=== PATIENT | female | born 1975 | race Two or more races ===

== ENCOUNTER 2018-09-18 08:48 | Observation (INO) | payer OTHER ==
[~2018-09-18] VITALS: Ht 160 cm; Wt 87.1 kg
[~2018-09-18 08:48] MED LIST: DEXAMETHASONE SOD PHOS 20 MG/5 ML VIAL. ONE; HYDROmorphone 2 MG/ML VIAL IV PRN; IV RINGERS,LACTATED 1000ML 1,000 ML IV SCH; LIDOCAINE 1% PF 2 ML VIAL. ID PRN; LIDOCAINE 2% PF 5 ML VIAL. ONE; MIDAZOLAM HCL/PF 2 MG/2 ML VIAL. ONE; MORPHINE SULFATE 2 MG/ML VIAL. IV PRN; ONDANSETRON PF 4 MG/2 ML VIAL. IV PRN; ONDANSETRON PF 4 MG/2 ML VIAL. ONE; PROCHLORPERAZINE 10 MG/2 ML VIAL. IV PRN; PROPOFOL 20 ML IV ONE; fentaNYL PF VIAL 100 MCG/2 ML VIAL IV PRN; fentaNYL PF VIAL 100 MCG/2 ML VIAL ONE
[2018-09-18 09:12] LABS: U PREG PATIENT NEGATIVE (NEG)
[2018-09-18 09:40] LABS: BASO # 0.1 x10^3/uL (0.0-0.2); BASO % 1 % (0-3); EOS # 0.1 x10^3/uL (0.0-0.7); EOS % 1 % (0-3); HEMATOCRIT 37.6 % (36.0-47.0); HEMOGLOBIN 12.5 g/dL (12.0-15.5); LYMPH # 2.4 x10^3/uL (1.0-4.8); LYMPH % 33 % (24-48); MEAN CORPUSCULAR HEMOGLOBIN 31 pg (25-35); MEAN CORPUSCULAR HGB CONC 33 g/dL (31-37); MEAN CORPUSCULAR VOLUME 93 fL (79-100); MONO # 0.5 x10^3/uL (0.0-1.1); MONO % 7 % (0-9); NEUT # 4.1 x10^3uL (1.8-7.7); NEUT % 58 % (31-73); PLATELET COUNT 431 x10^3/uL (140-400); RED BLOOD COUNT 4.04 x10^6/uL (3.50-5.40); RED CELL DISTRIBUTION WIDTH 14.6 % (11.5-14.5); WHITE BLOOD COUNT 7.1 x10^3/uL (4.0-11.0)
[2018-09-18] MEDS ORDERED: SILVER NITRATE STICK TP ONE (10:38)
[2018-09-18] MEDS ORDERED: LIDOCAINE 1%/EPI 1:100,000 20 ML VIAL. ONE (10:54)
[2018-09-18] MEDS ORDERED: KETOROLAC 30 MG/ML INJ FOR OR. INJ ONE (11:26)
[2018-09-18] MEDS ORDERED: SEVOFLURANE 31 TO 60 MINUTES. IH ONE (11:26)
--- NOTE | 2018-09-18 11:47 | PDOC ---
BRIEF OPERATIVE NOTE Date: Sep 18, 2018 Pre-Op Diagnosis 1. Dyspareunia 2. Labial skin tag Post-Op Diagnosis Same Procedure Performed Left Simple Vulvectomy Surgeon Dr. Moy Anesthesia Type: General Blood Loss 20 ml Specimens Obtained none Findings Left labial skin tag Complications none Operative Note see dictation SUSANNE MOY Jr, MD Sep 18, 2018 11:47
[2018-09-18] MEDS ORDERED: diphenhydrAMINE HCL 25 MG CAPSULE PO PRN (12:00)
[2018-09-18] MEDS ORDERED: ONDANSETRON PF 4 MG/2 ML VIAL. IV PRN (12:00)
[2018-09-18] MEDS ORDERED: CALCIUM CARBONATE 500 MG TAB.CHEW PO PRN (12:00)
[2018-09-18] MEDS ORDERED: ZOLPIDEM 5 MG TABLET. PO PRN (12:00)
[2018-09-18] MEDS ORDERED: diphenhydrAMINE 50 MG/ML VIAL IV PRN (12:00)
[2018-09-18] MEDS ORDERED: DEXTROSE 50% 25 GM / 50ML DISP.SYRIN. IV PRN (12:00)
[2018-09-18] MEDS ORDERED: KETOROLAC 30 MG/ML VIAL. IV PRN (12:00)
[2018-09-18] MEDS ORDERED: PROCHLORPERAZINE 10 MG/2 ML VIAL. IV PRN (12:00)
[2018-09-18] MEDS ORDERED: SIMETHICONE 80 MG TAB.CHEW PO PRN (12:00)
[2018-09-18] MEDS ORDERED: 0.9 % SODIUM CHLORIDE 10 ML DISP.SYRIN. IV PRN (12:00)
--- NOTE | 2018-09-18 12:12 | OP ---
DATE OF SURGERY: 09/18/2018 PREOPERATIVE DIAGNOSES: 1. Dyspareunia. 2. Labial skin tag. POSTOPERATIVE DIAGNOSES: 1. Dyspareunia. 2. Labial skin tag. PROCEDURE: Left simple vulvectomy. SURGEON: Sidney Moy MD. ANESTHESIA: GETA. ESTIMATED BLOOD LOSS: 20 mL. COMPLICATIONS: None. FINDINGS: Left labial skin tag. SUMMARY: A 43-year-old female who was complaining of dyspareunia and was found to have a left labial skin tag. The patient was counseled on risks, benefits and expectations of simple vulvectomy for removal of the left labial skin tag. She voiced clear understanding to proceed. DESCRIPTION OF PROCEDURE: The patient was taken to surgery suite and placed in dorsal lithotomy position. She was prepped with Betadine solution and draped in a sterile fashion. After adequate anesthesia, the lesion was identified and demarcated with a marking pen, which an elliptical incision was utilized to remove the lower left lobe of the labia using 1% lidocaine with epinephrine and scalpel. The remaining tissue of the bulbocavernosus muscles were reapproximated using 0 Vicryl suture in an interrupted fashion. Two interrupted sutures were utilized to reapproximate the perineal body. The skin was reapproximated using 2-0 Vicryl suture in a subcuticular manner. Moist vaginal packing was then placed. The patient tolerated the procedure well and was taken to recovery room in stable condition. Sponge and needle count correct x 3. SIDNEY MOY MD DR: ABDIRIZAK/cj JOB#: [id number] / [id number]
[2018-09-18 13:22] VITALS: BP 113/62
[2018-09-18 14:00] VITALS: BP 110/68
[2018-09-18 14:38] VITALS: BP 102/66
[2018-09-18] MEDS: GABAPENTIN 300 MG CAPSULE. PO SCH ×2 (14:50→21:08)
[2018-09-18] MEDS: oxyCODONE/APAP 5/325 1 TAB TABLET PO PRN ×2 (16:09→21:07)
[2018-09-18] MEDS ORDERED: OPIUM/BELLADONNA 30/16.2MG SUPP.RECT. PR PRN (17:15)
[2018-09-18 23:00] VITALS: BP 107/57
[2018-09-19] MEDS: oxyCODONE/APAP 5/325 1 TAB TABLET PO PRN ×2 (04:36→10:20)
[2018-09-19 05:47] VITALS: BP 102/59
[2018-09-19 05:58] LABS: BASO % 0 % (0-3); EOS % 0 % (0-3); HEMATOCRIT 37.6 % (36.0-47.0); HEMOGLOBIN 12.5 g/dL (12.0-15.5); LYMPH # 1.5 x10^3/uL (1.0-4.8); LYMPH % 14 % (24-48); MEAN CORPUSCULAR HEMOGLOBIN 31 pg (25-35); MEAN CORPUSCULAR HGB CONC 33 g/dL (31-37); MEAN CORPUSCULAR VOLUME 94 fL (79-100); MONO # 0.4 x10^3/uL (0.0-1.1); MONO % 4 % (0-9); NEUT # 9.1 x10^3uL (1.8-7.7); NEUT % 82 % (31-73); PLATELET COUNT 440 x10^3/uL (140-400); RED BLOOD COUNT 4.02 x10^6/uL (3.50-5.40); RED CELL DISTRIBUTION WIDTH 14.4 % (11.5-14.5); WHITE BLOOD COUNT 11.1 x10^3/uL (4.0-11.0)
[2018-09-19] MEDS: GABAPENTIN 300 MG CAPSULE. PO SCH (06:01)
--- NOTE | 2018-09-19 08:30 | PDOC ---
SURGICAL PROGRESS NOTE Subjective Pt. feeling well. Pain controlled. No complaints. Vital Signs Vital Signs Date Time Temp Pulse Resp B/P (MAP) Pulse Ox O2 Delivery O2 Flow Rate FiO2 09/19/18 05:47 98.4 57 16 102/59 (73) 98 Room Air 98.4 09/18/18 16:09 8.0 I&O Intake and Output 09/19/18 07:00 Intake Total 80 ml Output Total 570 ml Balance -490 ml Intake Oral 80 ml Output Urine Total 550 ml Estimated Blood Loss 20 ml PATIENT HAS A MCKAY: No General: Alert, Oriented X3, Cooperative HEENT: Atraumatic Lungs: Clear to auscultation Heart: Regular rate Abdomen: Normal bowel sounds, Soft, No tenderness, Other (Pelvic: vaginal packing removed. Incision site: clean and intact.) Extremities: No edema Psych/Mental Status: Mental status NL Labs Laboratory Tests Test 09/18/18 09:00 09/18/18 09:20 09/19/18 05:30 Urine Test Negative (NEG) White Blood Count 7.1 x10^3/uL (4.0-11.0) 11.1 x10^3/uL (4.0-11.0) Red Blood Count 4.04 x10^6/uL (3.50-5.40) 4.02 x10^6/uL (3.50-5.40) Hemoglobin 12.5 g/dL (12.0-15.5) 12.5 g/dL (12.0-15.5) Hematocrit 37.6 % (36.0-47.0) 37.6 % (36.0-47.0) Mean Corpuscular Volume 93 fL (79-100) 94 fL (79-100) Mean Corpuscular Hemoglobin 31 pg (25-35) 31 pg (25-35) Mean Corpuscular Hemoglobin Concent 33 g/dL (31-37) 33 g/dL (31-37) Red Cell Distribution Width 14.6 % (11.5-14.5) 14.4 % (11.5-14.5) Platelet Count 431 x10^3/uL (140-400) 440 x10^3/uL (140-400) Neutrophils (%) (Auto) 58 % (31-73) 82 % (31-73) Lymphocytes (%) (Auto) 33 % (24-48) 14 % (24-48) Monocytes (%) (Auto) 7 % (0-9) 4 % (0-9) Eosinophils (%) (Auto) 1 % (0-3) 0 % (0-3) Basophils (%) (Auto) 1 % (0-3) 0 % (0-3) Neutrophils # (Auto) 4.1 x10^3uL (1.8-7.7) 9.1 x10^3uL (1.8-7.7) Lymphocytes # (Auto) 2.4 x10^3/uL (1.0-4.8) 1.5 x10^3/uL (1.0-4.8) Monocytes # (Auto) 0.5 x10^3/uL (0.0-1.1) 0.4 x10^3/uL (0.0-1.1) Eosinophils # (Auto) 0.1 x10^3/uL (0.0-0.7) 0.0 x10^3/uL (0.0-0.7) Basophils # (Auto) 0.1 x10^3/uL (0.0-0.2) 0.0 x10^3/uL (0.0-0.2) Laboratory Tests Test 09/18/18 09:00 09/18/18 09:20 09/19/18 05:30 Urine Test Negative (NEG) White Blood Count 7.1 x10^3/uL (4.0-11.0) 11.1 x10^3/uL (4.0-11.0) Red Blood Count 4.04 x10^6/uL (3.50-5.40) 4.02 x10^6/uL (3.50-5.40) Hemoglobin 12.5 g/dL (12.0-15.5) 12.5 g/dL (12.0-15.5) Hematocrit 37.6 % (36.0-47.0) 37.6 % (36.0-47.0) Mean Corpuscular Volume 93 fL (79-100) 94 fL (79-100) Mean Corpuscular Hemoglobin 31 pg (25-35) 31 pg (25-35) Mean Corpuscular Hemoglobin Concent 33 g/dL (31-37) 33 g/dL (31-37) Red Cell Distribution Width 14.6 % (11.5-14.5) 14.4 % (11.5-14.5) Platelet Count 431 x10^3/uL (140-400) 440 x10^3/uL (140-400) Neutrophils (%) (Auto) 58 % (31-73) 82 % (31-73) Lymphocytes (%) (Auto) 33 % (24-48) 14 % (24-48) Monocytes (%) (Auto) 7 % (0-9) 4 % (0-9) Eosinophils (%) (Auto) 1 % (0-3) 0 % (0-3) Basophils (%) (Auto) 1 % (0-3) 0 % (0-3) Neutrophils # (Auto) 4.1 x10^3uL (1.8-7.7) 9.1 x10^3uL (1.8-7.7) Lymphocytes # (Auto) 2.4 x10^3/uL (1.0-4.8) 1.5 x10^3/uL (1.0-4.8) Monocytes # (Auto) 0.5 x10^3/uL (0.0-1.1) 0.4 x10^3/uL (0.0-1.1) Eosinophils # (Auto) 0.1 x10^3/uL (0.0-0.7) 0.0 x10^3/uL (0.0-0.7) Basophils # (Auto) 0.1 x10^3/uL (0.0-0.2) 0.0 x10^3/uL (0.0-0.2) Assessment/Plan A: POD#1 s/p Vulvectomy P: D/c home. SUSANNE ADDISON Jr, MD Sep 19, 2018 08:30
--- NOTE | 2018-09-19 08:31 | DISCH ---
DISCHARGE INSTRUCTIONS Condition on Discharge Condition on Discharge: Stable Activity After Discharge Activity Instructions for Disc: Activity as tolerated Lifting Instructions after Dis: No heavy lifting Driving Instructions after Dis: Do not drive today Diet after Discharge Diet after Discharge: Regular Contacting the DRYuriy after DC Call your doctor for: Concerns you may have Follow-Up Follow up with: Dr. Moy in 2 weeks SUSANNE MOY Jr, MD Sep 19, 2018 08:31
[2018-09-19] MEDS ORDERED: IBUP-1060 PO (08:33)
[2018-09-19] MEDS ORDERED: GABA300C18 PO (08:33)
[2018-09-19 11:50] VITALS: BP 112/68
[2018-09-19 15:10] VITALS: BP_SYST 104; BP_SYST 91; BP_DIAS 62; BP_DIAS 64
== END 2018-09-19 11:00 | disposition home or self-care (01) ==
LOC: SURG 08:48 → 3 NORTH 12:28
PROVIDERS: ADMIT Obstetrics & Gynecology; ATTEND Obstetrics & Gynecology
DX: N94.10 Unspecified dyspareunia (principal); N90.89 Other specified noninflammatory disorders of vulva and perineum; N60.29 Fibroadenosis of unspecified breast; Z98.890 Other specified postprocedural states
CPT/HCPCS: 36415; 56620; 81025; 85025; 86850; 86900; 86901; A7015; G0378; G0379; J0696; J1100; J1885; J2001; J2250; J2405; J2704; J3010; J3490

== ENCOUNTER → 2020-05-04 | Outpatient (CLI) | payer OTHER ==
[~2020-05-04] MED LIST changes: -DEXAMETHASONE SOD PHOS 20 MG/5 ML VIAL. ONE; +GABA300C18 PO; -HYDROmorphone 2 MG/ML VIAL IV PRN; +IBUP-1060 PO; -IV RINGERS,LACTATED 1000ML 1,000 ML IV SCH; -LIDOCAINE 1% PF 2 ML VIAL. ID PRN; -LIDOCAINE 2% PF 5 ML VIAL. ONE; -MIDAZOLAM HCL/PF 2 MG/2 ML VIAL. ONE; -MORPHINE SULFATE 2 MG/ML VIAL. IV PRN; -ONDANSETRON PF 4 MG/2 ML VIAL. IV PRN; -ONDANSETRON PF 4 MG/2 ML VIAL. ONE; -PROCHLORPERAZINE 10 MG/2 ML VIAL. IV PRN; -PROPOFOL 20 ML IV ONE; -fentaNYL PF VIAL 100 MCG/2 ML VIAL IV PRN; -fentaNYL PF VIAL 100 MCG/2 ML VIAL ONE
--- NOTE | 2020-05-04 18:32 | RAD ---
EXAMINATION: PELVIS W/TV, 05/04/2020 3:30 PM CLINICAL INDICATION: Bilateral ovarian cysts TECHNIQUE: Grayscale, color and spectral Doppler ultrasound images of the pelvis via transvaginal approach. COMPARISON: None. FINDINGS: The uterus measures 8.0 5.0 x 4.3 cm. The endometrial stripe measures 12 mm in thickness. No myometrial mass. Incidental nabothian cysts in the cervix. The right ovary measures 2.9 x 1.8 x 1.7 cm. No right ovarian cyst or mass. The left ovary measures 2.7 x 1.4 x 1.3 cm. There is a dominant left ovarian follicle measuring 1 cm. Intact blood flow to both ovaries No adnexal mass or free fluid. IMPRESSION: Unremarkable pelvic ultrasound. Electronically signed by: Gertrudis Steiner MD (05/04/2020 6:30 PM) [id number]
== END ==
LOC: US 15:09
PROVIDERS: ATTEND Obstetrics & Gynecology
DX: N83.201 Unspecified ovarian cyst, right side (principal); N83.202 Unspecified ovarian cyst, left side
CPT/HCPCS: 76830; 76856